=== PATIENT | male | born 1995 | race Caucasian/White ===

== ENCOUNTER 2022-02-09 16:34 | Emergency (ER) | payer MEDICAID ==
[~2022-02-09] VITALS: Ht 180.3 cm; Wt 130.0 kg
[2022-02-09] MEDS ORDERED: KETOROLAC 30MG/ML VIAL IV STA (23:17)
[2022-02-09] MEDS ORDERED: VISCOUS LIDOCAINE 2% 15 ML UDC PO STA (23:17)
[2022-02-09] MEDS ORDERED: MAGNESIUM/ALUMINUM HYDROXIDE/SIMETHICONE 30ML UDC PO STA (23:17)
[2022-02-09 23:55] LABS: BASOPHILS % 0.6 % (0.0-2.0); EOSINOPHILS % 0.7 % (0.0-5.0); HEMATOCRIT. 43.5 % (42.0-52.0); HEMOGLOBIN. 14.9 g/dL (14.0-18.0); LYMPHOCYTES % 16.1 % (20.0-50.0); MEAN CORPUSCULAR VOLUME 87.7 fL (80.0-94.0); MEAN PLATELET VOLUME 8.4 fl (7.4-10.4); NEUTROPHILS % 74.6 % (40.0-76.0); PLATELET 246 x1000/uL (130-400); RED BLOOD CELL COUNT 4.96 mill/uL (4.7-6.1); RED CELL DISTRIBUTION WIDTH 13.1 % (11.6-14.6)
[2022-02-10 00:05] LABS: CHLORIDE 105 mEq/L (98-107)
[2022-02-10 00:45] VITALS: BP 136/70
== END 2022-02-10 00:55 | disposition home or self-care (01) ==
LOC: ER 16:34
DX: K80.80 Other cholelithiasis without obstruction (principal)
CPT/HCPCS: 36415; 76700; 80053; 83690; 84484; 85025; 93005; 96374; 99285; J1885